=== PATIENT | male | born 1985 | race African-American/Black ===

== ENCOUNTER 2017-12-25 13:26 | Emergency (ER) | payer SELFPAY ==
[~2017-12-25] VITALS: Ht 187.9 cm; Wt 126.6 kg
[2017-12-25 14:21] LABS: BILIRUBIN NEGATIVE (NEGATIVE); BLOOD 3+ (NEGATIVE); CLARITY CLOUDY (CLEAR); COLOR YELLOW (YELLOW); GLUCOSE NEGATIVE (NEGATIVE); KETONE NEGATIVE (NEGATIVE); LEUKO ESTERASE 2+ (NEGATIVE); NITRITE NEGATIVE (NEGATIVE); PH 5.5 (5.0-9.0); SPECIFIC GRAVITY >= 1.030 (1.005-1.030); UROBILINOGEN 0.2 E.U./dl (0.2-1.0)
[2017-12-25] MEDS ORDERED: ANUSOL HC,ANUCO25 MG PO (14:24)
[2017-12-25 14:32] LABS: BACTERIA 1+; RBC TNTC rbc/hpf (0-2); WBC TNTC wbc/hpf (0-5)
[2017-12-25] MEDS ORDERED: SEPTDS PO (14:45)
== END 2017-12-25 15:12 | disposition home or self-care (01) ==
LOC: ED 13:26
PROVIDERS: Student in an Organized Health Care Education/Training Program
DX: N41.0 Acute prostatitis (principal); F17.200 Nicotine dependence, unspecified, uncomplicated